=== PATIENT | female | born 1990 | race Caucasian/White ===

== ENCOUNTER 2023-07-21 17:12 | Emergency (ER) | payer OTHER ==
[~2023-07-21] VITALS: Ht 152.4 cm; Wt 65.8 kg
[2023-07-21 17:15] VITALS: BP 119/75; PULSE 74; RESP 18; TEMP 97.6; O2SAT 99
[2023-07-21] MEDS: DEXT 5% /NACL 0.9% 1,000 ML IV ONE (17:54)
[2023-07-21] MEDS: ONDANSETRON 4 MG/2 ML VIAL IVP ONE (17:54)
[2023-07-21 18:02] LABS: BASOPHILS % (AUTO) 0.3 % (0.0-2.0); EOSINOPHILS % (AUTO) 0.3 % (0.0-4.0); HEMATOCRIT 39.6 % (36-48); HEMOGLOBIN 13.8 g/dL (12.0-16.0); LYMPHOCYTES # (AUTO) 1.3 K/uL (2.5-16.5); LYMPHOCYTES % (AUTO) 15.6 % (20.5-51.1); MEAN CORPUSCULAR HEMOGLOBIN 28 pg (27-31); MEAN CORPUSCULAR HGB CONC 35 g/dL (33-37); MEAN CORPUSCULAR VOLUME 80.5 fL (80-94); MONOCYTES # (AUTO) 0.5 K/uL (0.8-1.0); MONOCYTES % (AUTO) 6.2 % (1.7-9.3); NEUTROPHILS # (AUTO) 6.3 K/uL (1.8-7.7); NEUTROPHILS % (AUTO) 77.6 % (42.2-75.2); PLATELET COUNT (AUTO) 216 K/uL (140-450); RED BLOOD CELL COUNT(AUTO) 4.92 MIL/uL (4.20-5.40); RED CELL DISTRIBUTION WIDTH 14.4 % (11.6-13.7); WHITE BLOOD COUNT (AUTO) 8.2 K/uL (4.8-10.8)
[2023-07-21 18:11] LABS: ANION GAP 14.6 (8-16); CALCIUM 8.8 mg/dL (8.5-10.1); CARBON DIOXIDE 24.5 mmol/L (21-32); CREATININE 0.6 mg/dL (0.6-1.3); POTASSIUM 3.1 mmol/L (3.5-5.1)
[2023-07-21 18:16] LABS: MAGNESIUM 2.2 mg/dL (1.8-2.4); PHOSPHORUS 3.9 mg/dL (2.5-4.9)
[2023-07-21] MEDS: ACETAMINOPHEN 325 MG TAB PO ONE (18:31)
[2023-07-21 19:07] LABS: APPEARANCE,URINE CLEAR (CLEAR); BILIRUBIN,URINE NEGATIVE (NEGATIVE); BLOOD, URINE TRACE-I (NEGATIVE); COLOR,URINE YELLOW (YELLOW); LEUKOCYTE ESTERASE ,URINE NEGATIVE (NEGATIVE); NITRITE, URINE NEGATIVE (NEGATIVE); PROTEIN,URINE TRACE (NEGATIVE); UGLUCOSE 2+ (NEGATIVE); UROBILINOGEN,URINE 0.2 EU/dL (0.2 - 1)
[2023-07-21 19:18] LABS: RBC,URINE 0-5 /HPF (0-5); WBC,URINE 0 /HPF (0-5)
[2023-07-21 19:19] LABS: BACTERIA,URINE 1+ /HPF (None Seen); MUCUS,URINE None Seen /LPF (None Seen); SQUAMOUS EPITHELIAL CELL,UR 0-3 (FEW) /LPF (0-3 (FEW))
[2023-07-21] MEDS: POTASSIUM CHLORIDE 10 MEQ TABER PO ONE (19:44)
[2023-07-21] MEDS ORDERED: DOXY1TCP PO (19:53)
[2023-07-21 20:05] VITALS: BP 99/65; PULSE 67; RESP 13; TEMP 97.6; O2SAT 100
== END 2023-07-21 20:05 | disposition home or self-care (01) ==
LOC: MED 17:12
DX: O21.9 Vomiting of pregnancy, unspecified (principal); O00.01 Abdominal pregnancy with intrauterine pregnancy; E87.6 Hypokalemia; Z3A.08 8 weeks gestation of pregnancy; Z79.899 Other long term (current) drug therapy
CPT/HCPCS: 36415; 80048; 81001; 81025; 83735; 84100; 84702; 85025; 86900; 86901; 96361; 96374; 99284; J2405; J7030

== ENCOUNTER 2023-07-26 17:51 | Emergency (ER) | payer OTHER ==
[~2023-07-26] VITALS: Ht 152.4 cm; Wt 68.0 kg
[~2023-07-26 17:51] MED LIST: DOXY1TCP PO
[2023-07-26 18:19] VITALS: BP 93/69; PULSE 84; RESP 18; TEMP 98.8; O2SAT 98
[2023-07-26 18:28] VITALS: O2SAT 98
[2023-07-26] MEDS: NACL 0.9% 1,000 ML IV ONE (18:48)
[2023-07-26] MEDS: ONDANSETRON 4 MG/2 ML VIAL IVP ONE (18:57)
[2023-07-26] MEDS ORDERED: ACETAMINOPHEN 325 MG TAB ONE (19:03)
[2023-07-26 19:06] LABS: BASOPHILS % (AUTO) 0.3 % (0.0-2.0); EOSINOPHILS # (AUTO) 0.1 K/uL (0-0.4); EOSINOPHILS % (AUTO) 1.1 % (0.0-4.0); HEMATOCRIT 38.3 % (36-48); HEMOGLOBIN 12.9 g/dL (12.0-16.0); LYMPHOCYTES # (AUTO) 1.7 K/uL (2.5-16.5); LYMPHOCYTES % (AUTO) 24.6 % (20.5-51.1); MEAN CORPUSCULAR HEMOGLOBIN 28 pg (27-31); MEAN CORPUSCULAR HGB CONC 34 g/dL (33-37); MEAN CORPUSCULAR VOLUME 81.4 fL (80-94); MONOCYTES # (AUTO) 0.4 K/uL (0.8-1.0); MONOCYTES % (AUTO) 5.8 % (1.7-9.3); NEUTROPHILS # (AUTO) 4.8 K/uL (1.8-7.7); NEUTROPHILS % (AUTO) 68.2 % (42.2-75.2); PLATELET COUNT (AUTO) 215 K/uL (140-450); RED CELL DISTRIBUTION WIDTH 14.4 % (11.6-13.7); WHITE BLOOD COUNT (AUTO) 7.1 K/uL (4.8-10.8)
[2023-07-26 19:07] LABS: APPEARANCE,URINE CLOUDY (CLEAR); BILIRUBIN,URINE 1+ (NEGATIVE); BLOOD, URINE TRACE-I (NEGATIVE); COLOR,URINE YELLOW (YELLOW); LEUKOCYTE ESTERASE ,URINE 1+ (NEGATIVE); NITRITE, URINE NEGATIVE (NEGATIVE); PROTEIN,URINE NEGATIVE (NEGATIVE); UGLUCOSE NEGATIVE (NEGATIVE)
[2023-07-26] MEDS: ACETAMINOPHEN 325 MG TAB PO ONE (19:08)
[2023-07-26 19:15] LABS: ANION GAP 15.1 (8-16); CALCIUM 8.5 mg/dL (8.5-10.1); CARBON DIOXIDE 21.5 mmol/L (21-32); CREATININE 0.5 mg/dL (0.6-1.3); POTASSIUM 3.6 mmol/L (3.5-5.1)
[2023-07-26 19:22] LABS: ALBUMIN 3.6 g/dL (3.4-5.0); BILIRUBIN,DIRECT 0.1 mg/dL (0.0-0.3); TOTAL BILIRUBIN 0.5 mg/dL (0.0-1.0); TOTAL PROTEIN, SERUM 6.9 g/dL (6.4-8.2)
[2023-07-26 19:24] LABS: ICTOTEST NEGATIVE (NEGATIVE)
[2023-07-26 19:25] LABS: BACTERIA,URINE FEW /HPF (None Seen); MUCUS,URINE 1+ /LPF (None Seen); RBC,URINE 0-5 /HPF (0-5); SQUAMOUS EPITHELIAL CELL,UR 4-10 (MOD) /LPF (0-3 (FEW)); TRICHOMONAS,URINE None Seen /HPF (None Seen); URINE AMORPHOUS URATE 2+ /HPF (None Seen); YEAST,URINE None Seen /HPF (None Seen)
[2023-07-26 20:08] VITALS: BP 132/74; PULSE 78; RESP 18; TEMP 98; O2SAT 98
== END 2023-07-26 20:00 | disposition home or self-care (01) ==
LOC: MED 17:51
DX: O21.0 Mild hyperemesis gravidarum (principal); Z3A.09 9 weeks gestation of pregnancy; Z79.899 Other long term (current) drug therapy
CPT/HCPCS: 36415; 80048; 80076; 81001; 83690; 85025; 87086; 96374; 99283; J2405; J7030

== ENCOUNTER 2023-08-01 23:28 | Emergency (ER) | payer OTHER ==
[~2023-08-01] VITALS: Ht 165.1 cm; Wt 68.0 kg
[2023-08-01 23:30] VITALS: BP 101/68; PULSE 70; RESP 17; TEMP 98; O2SAT 98
[2023-08-02] MEDS: LACTATED RINGERS 1,000 ML IV ONE ×2 (00:14→01:15)
[2023-08-02 00:24] LABS: ANION GAP 15.1 (8-16); CALCIUM 9.2 mg/dL (8.5-10.1); CARBON DIOXIDE 24.1 mmol/L (21-32); CREATININE 0.6 mg/dL (0.6-1.3); POTASSIUM 3.2 mmol/L (3.5-5.1)
[2023-08-02] MEDS: diphenhydrAMINE 50 MG/ML VIAL IVP ONE (00:27)
[2023-08-02] MEDS: METOCLOPRAMIDE 10 MG/2 ML INJ VIAL IVP ONE (00:27)
[2023-08-02] MEDS ORDERED: DOXY1TCP PO (00:45)
[2023-08-02] MEDS: KCL 20 MEQ IN 100 mL PREMIX 100 ML IV ONE (01:15)
[2023-08-02 03:09] VITALS: BP 103/62; PULSE 68; RESP 12; O2SAT 98
== END 2023-08-02 03:11 | disposition home or self-care (01) ==
LOC: MED 23:28
DX: O21.9 Vomiting of pregnancy, unspecified (principal); O26.891 Other specified pregnancy related conditions, first trimester; E87.6 Hypokalemia; Z3A.01 Less than 8 weeks gestation of pregnancy
CPT/HCPCS: 36415; 80048; 83735; 96365; 96366; 96375; 99284; J1200; J2765; J3480; J7120; 96361; 96374

== ENCOUNTER 2023-08-06 21:58 | Emergency (ER) | payer OTHER ==
[~2023-08-06] VITALS: Ht 165.1 cm; Wt 67.1 kg
[2023-08-06 22:39] VITALS: BP 98/65; PULSE 84; RESP 18; TEMP 97.6; O2SAT 98
[2023-08-06 22:58] LABS: BASOPHILS % (AUTO) 0.1 % (0.0-2.0); EOSINOPHILS # (AUTO) 0.1 K/uL (0-0.4); EOSINOPHILS % (AUTO) 0.6 % (0.0-4.0); HEMATOCRIT 39.3 % (36-48); HEMOGLOBIN 13.4 g/dL (12.0-16.0); LYMPHOCYTES # (AUTO) 1.9 K/uL (2.5-16.5); LYMPHOCYTES % (AUTO) 21.3 % (20.5-51.1); MEAN CORPUSCULAR HEMOGLOBIN 28 pg (27-31); MEAN CORPUSCULAR HGB CONC 34 g/dL (33-37); MEAN CORPUSCULAR VOLUME 81.5 fL (80-94); MONOCYTES # (AUTO) 0.3 K/uL (0.8-1.0); MONOCYTES % (AUTO) 3.2 % (1.7-9.3); NEUTROPHILS # (AUTO) 6.8 K/uL (1.8-7.7); NEUTROPHILS % (AUTO) 74.8 % (42.2-75.2); PLATELET COUNT (AUTO) 240 K/uL (140-450); RED BLOOD CELL COUNT(AUTO) 4.82 MIL/uL (4.20-5.40); RED CELL DISTRIBUTION WIDTH 14.9 % (11.6-13.7); WHITE BLOOD COUNT (AUTO) 9.1 K/uL (4.8-10.8)
[2023-08-06] MEDS: NACL 0.9% 1,000 ML IV ONE (23:01)
[2023-08-06] MEDS: ONDANSETRON 4 MG/2 ML VIAL IVP ONE (23:05)
[2023-08-06 23:08] LABS: APPEARANCE,URINE SL CLOUDY (CLEAR); BILIRUBIN,URINE 1+ (NEGATIVE); BLOOD, URINE TRACE-I (NEGATIVE); COLOR,URINE YELLOW (YELLOW); LEUKOCYTE ESTERASE ,URINE NEGATIVE (NEGATIVE); NITRITE, URINE NEGATIVE (NEGATIVE); PROTEIN,URINE 1+ (NEGATIVE); UGLUCOSE NEGATIVE (NEGATIVE); UROBILINOGEN,URINE 0.2 EU/dL (0.2 - 1)
[2023-08-06 23:10] LABS: ANION GAP 16.3 (8-16); CALCIUM 9.1 mg/dL (8.5-10.1); CREATININE 0.6 mg/dL (0.6-1.3); POTASSIUM 3.3 mmol/L (3.5-5.1)
[2023-08-06 23:16] LABS: ALBUMIN 4.2 g/dL (3.4-5.0); BILIRUBIN,DIRECT 0.1 mg/dL (0.0-0.3); TOTAL BILIRUBIN 0.5 mg/dL (0.0-1.0); TOTAL PROTEIN, SERUM 7.8 g/dL (6.4-8.2)
[2023-08-06 23:18] LABS: ICTOTEST POSITIVE (NEGATIVE)
[2023-08-06 23:19] LABS: BACTERIA,URINE 10-30 (MOD) /HPF (None Seen); MUCUS,URINE 1+ /LPF (None Seen); SQUAMOUS EPITHELIAL CELL,UR 4-10 (MOD) /LPF (0-3 (FEW)); WBC,URINE 0-5 /HPF (0-5)
[2023-08-07] MEDS ORDERED: cefTRIAXone 1,000 MG VIAL ONE (00:39)
[2023-08-07] MEDS ORDERED: ONDA-188 SL (01:08)
[2023-08-07] MEDS ORDERED: NITR100C7 PO (01:08)
[2023-08-07 01:15] VITALS: BP 110/78; PULSE 80; RESP 18; TEMP 98
[2023-08-07 01:28] VITALS: O2SAT 98
== END 2023-08-07 01:15 | disposition home or self-care (01) ==
LOC: MED 21:58
DX: O21.0 Mild hyperemesis gravidarum (principal); O23.41 Unspecified infection of urinary tract in pregnancy, first trimester; Z3A.10 10 weeks gestation of pregnancy; Z98.890 Other specified postprocedural states; Z79.899 Other long term (current) drug therapy
CPT/HCPCS: 36415; 80048; 80076; 81001; 81025; 85025; 87086; 96361; 96365; 96375; 99284; J0696; J2405; J7030

== ENCOUNTER 2023-08-21 19:00 | Emergency (ER) | payer OTHER ==
[~2023-08-21] VITALS: Ht 165.1 cm; Wt 62.4 kg
[~2023-08-21 19:00] MED LIST changes: +NITR100C7 PO; +ONDA-188 SL
[2023-08-21 19:15] VITALS: BP 108/65; PULSE 68; RESP 20; TEMP 98.4; O2SAT 100
[2023-08-21 19:27] VITALS: BP 108/65; PULSE 68; RESP 20; TEMP 98.4
[2023-08-21] MEDS ORDERED: NACL 0.9% 1,000 ML IV ONE (19:45)
[2023-08-21 20:00] VITALS: O2SAT 98
[2023-08-21 20:10] LABS: BASOPHILS % (AUTO) 0.4 % (0.0-2.0); EOSINOPHILS # (AUTO) 0.1 K/uL (0-0.4); EOSINOPHILS % (AUTO) 0.7 % (0.0-4.0); HEMATOCRIT 35.8 % (36-48); HEMOGLOBIN 12.2 g/dL (12.0-16.0); LYMPHOCYTES # (AUTO) 1.7 K/uL (2.5-16.5); LYMPHOCYTES % (AUTO) 18.5 % (20.5-51.1); MEAN CORPUSCULAR HEMOGLOBIN 28 pg (27-31); MEAN CORPUSCULAR HGB CONC 34 g/dL (33-37); MEAN CORPUSCULAR VOLUME 82.4 fL (80-94); MONOCYTES # (AUTO) 0.4 K/uL (0.8-1.0); NEUTROPHILS # (AUTO) 6.8 K/uL (1.8-7.7); NEUTROPHILS % (AUTO) 76.4 % (42.2-75.2); PLATELET COUNT (AUTO) 197 K/uL (140-450); RED BLOOD CELL COUNT(AUTO) 4.34 MIL/uL (4.20-5.40); RED CELL DISTRIBUTION WIDTH 15.3 % (11.6-13.7); WHITE BLOOD COUNT (AUTO) 8.9 K/uL (4.8-10.8)
[2023-08-21] MEDS: NACL 0.9% 1,000 ML IV ONE (20:14)
[2023-08-21] MEDS: ONDANSETRON 4 MG/2 ML VIAL IVP ONE (20:18)
[2023-08-21 20:21] LABS: APPEARANCE,URINE SLIGHTLY CLOUDY (CLEAR); BILIRUBIN,URINE NEGATIVE (NEGATIVE); BLOOD, URINE TRACE-I (NEGATIVE); COLOR,URINE YELLOW (YELLOW); LEUKOCYTE ESTERASE ,URINE 1+ (NEGATIVE); NITRITE, URINE NEGATIVE (NEGATIVE); PH,URINE 6.5 (5.0-9.0); PROTEIN,URINE NEGATIVE (NEGATIVE); UGLUCOSE NEGATIVE (NEGATIVE); UROBILINOGEN,URINE 0.2 EU/dL (0.2 - 1)
[2023-08-21 20:21] LABS: CALCIUM 8.8 mg/dL (8.5-10.1); CARBON DIOXIDE 22.7 mmol/L (21-32); CREATININE 0.5 mg/dL (0.6-1.3); POTASSIUM 3.7 mmol/L (3.5-5.1)
[2023-08-21 20:27] LABS: ALBUMIN 3.5 g/dL (3.4-5.0); BILIRUBIN,DIRECT 0.1 mg/dL (0.0-0.3); TOTAL BILIRUBIN 0.5 mg/dL (0.0-1.0); TOTAL PROTEIN, SERUM 6.8 g/dL (6.4-8.2)
[2023-08-21 20:30] LABS: BACTERIA,URINE 10-30 (MOD) /HPF (None Seen); RBC,URINE 0-5 /HPF (0-5); SQUAMOUS EPITHELIAL CELL,UR 4-10 (MOD) /LPF (0-3 (FEW))
[2023-08-21] MEDS: DEXT 5% / NACL 0.9% 500 ML IV ONE (21:00)
[2023-08-21] MEDS ORDERED: CEPH-588 PO (21:31)
== END 2023-08-21 21:54 | disposition home or self-care (01) ==
LOC: MED 19:00
DX: O23.11 Infections of bladder in pregnancy, first trimester (principal); Z3A.12 12 weeks gestation of pregnancy; Z79.899 Other long term (current) drug therapy
CPT/HCPCS: 36415; 80048; 80076; 81001; 83690; 85025; 87086; 96361; 96374; 99284; J2405; J7030